=== PATIENT | male | born 1980 | race Caucasian/White ===

== ENCOUNTER 2020-08-16 10:54 | Observation (INO) | payer BC ==
[~2020-08-16] VITALS: Ht 188 cm; Wt 96.6 kg
[2020-08-16] MEDS ORDERED: ONDANSETRON HCL INJ 2MG/ML 2ML 2 MG/ML VIAL IV STA (11:05)
[2020-08-16] MEDS ORDERED: CEFEPIME 1GM/NS 0.9% 50 ML 50 ML IV STA (11:05)
[2020-08-16] MEDS ORDERED: MORPHINE SULFATE INJ 4 MG/ML INJ 1ML IV PRN ×2 (11:15→12:30)
[2020-08-16] MEDS ORDERED: SODIUM CHLORIDE 0.9% 1000ML 1,000 ML IV SCH (11:15)
[2020-08-16 11:19] LABS: BASOPHILS # (AUTO) 0.1 (0.0-0.1); BASOPHILS % 0.8 % (0.0-1.0); EOSINOPHILS # (AUTO) 0.1 (0.0-0.4); EOSINOPHILS % 1.7 % (0.0-6.0); HEMATOCRIT 49.8 % (38.2-49.6); LYMPHOCYTES # (AUTO) 1.4 (1.0-3.2); LYMPHOCYTES % 18.1 % (18.0-39.1); MEAN CORPUSCULAR HGB CONC 34.1 g/dL (31-35); MEAN CORPUSCULAR VOLUME 93.6 fL (81-99); MONOCYTES # (AUTO) 0.5 (0.2-0.8); NEUTROPHILS # (AUTO) 5.7 (2.1-6.9); PLATELET COUNT 211 x10e3/uL (140-360); RED BLOOD COUNT 5.32 x10e6/uL (4.3-5.7)
[2020-08-16] MEDS ORDERED: SODIUM CHLORIDE 0.9% 50ML 50 ML ONE (11:37)
[2020-08-16] MEDS ORDERED: IOPAMIDOL 370 MG/ML 200 ML INFUS..BTL INJ ONE (11:37)
[2020-08-16 11:40] LABS: ALANINE AMINOTRANSFERASE 101 IU/L (0-55); ALBUMIN 4.3 g/dL (3.5-5.0); ALBUMIN/GLOBULIN RATIO 1.1 (0.8-2.0); ALKALINE PHOSPHATASE 76 IU/L (40-150); ANION GAP 16.1 mmol/L (8-16); BLOOD UREA NITROGEN 10 mg/dL (7-26); BUN/CREATININE RATIO 9 (6-25); CALCIUM 9.2 mg/dL (8.4-10.2); CARBON DIOXIDE 28 mmol/L (22-29); CHLORIDE 102 mmol/L (98-107); CREATININE, SERUM 1.08 mg/dL (0.72-1.25); EST GLOMERULAR FILTRATION RATE > 60 ML/MIN (60-); GLUCOSE 119 mg/dL (74-118); POTASSIUM 4.1 mmol/L (3.5-5.1); SODIUM 142 mmol/L (136-145)
[2020-08-16] MEDS ORDERED: VANCOMYCIN 1GM/NS 250 ML 250 ML IV ONE (12:00)
[2020-08-16] MEDS ORDERED: ONDANSETRON HCL INJ 2MG/ML 2ML 2 MG/ML VIAL IV PRN ×2 (12:15→12:30)
[2020-08-16] MEDS ORDERED: MORPHINE SULFATE INJ 2 MG/ML SYR IV PRN (12:15)
[2020-08-16] MEDS ORDERED: POLYETHYLENE GLYCOL 3350 17 GM PACK PO PRN (12:30)
[2020-08-16] MEDS ORDERED: POTASSIUM CHLORIDE 20 MEQ TAB CR PO PRN (12:30)
[2020-08-16] MEDS ORDERED: ACETAMINOPHEN 325 MG TAB PO PRN (12:30)
[2020-08-16] MEDS ORDERED: HYDRALAZINE HCL 20 MG/ML VIAL IV PRN (12:30)
[2020-08-16] MEDS ORDERED: DEXTROSE 50% SYRINGE 50 ML IV PRN (12:30)
[2020-08-16] MEDS ORDERED: HYDROCODONE/APAP 5MG-325MG TAB PO PRN (12:30)
[2020-08-16] MEDS ORDERED: DIPHENHYDRAMINE HCL 25 MG CAP PO PRN (12:30)
[2020-08-16] MEDS ORDERED: DOCUSATE SODIUM 100 MG CAP PO PRN (12:30)
[2020-08-16] MEDS ORDERED: LIDOCAINE HCL 2% LOCAL INJ 5 ML SDV VIAL INJ ONE (12:49)
[2020-08-16] MEDS ORDERED: DEXAMETHASONE SOD PHOS INJ 4 MG/ML VIAL ONE (12:49)
[2020-08-16] MEDS ORDERED: ONDANSETRON HCL INJ 2MG/ML 2ML 2 MG/ML VIAL ONE (12:49)
[2020-08-16] MEDS ORDERED: SEVOFLURANE INHAL SOLN 250 ML PEN BTL ONE (12:49)
[2020-08-16] MEDS ORDERED: PROPOFOL IV EMULSION 10 MG/ML 20 ML VIAL ONE (12:49)
[2020-08-16] MEDS: SODIUM CHLORIDE 0.9% 1000ML 1,000 ML IV SCH (13:41)
[2020-08-16] MEDS: MORPHINE SULFATE INJ 4 MG/ML INJ 1ML IV PRN (16:47)
[2020-08-16] MEDS ORDERED: ENOXAPARIN SOD INJ 40 MG/0.4 ML SYR SC SCH (17:00)
[2020-08-16] MEDS ORDERED: BUPIVACAINE HCL 0.5% INJ 30 ML VIAL INJ ONE (19:06)
[2020-08-16] MEDS ORDERED: LIDOCAINE HCL 2% 30 ML TUBE ONE (19:06)
[2020-08-16] MEDS ORDERED: ACETAMINOPHEN/CODEINE 300MG - 30MG TAB PO PRN (19:45)
[2020-08-16] MEDS ORDERED: FENTANYL CITRATE/PF 100MCG/2 ML INJ ONE (19:59)
[2020-08-16] MEDS: CEFEPIME 1GM/NS 0.9% 50 ML 50 ML IV SCH (20:42)
[2020-08-16 20:45] VITALS: BP 171/117
[2020-08-16] MEDS ORDERED: VANCOMYCIN 1GM/NS 250 ML 250 ML IV SCH (21:00)
[2020-08-16] MEDS ORDERED: MELATONIN 5 MG TABLET PO PRN (21:00)
[2020-08-16 21:48] VITALS: BP 171/117
[2020-08-16 22:13] VITALS: BP 171/117
[2020-08-17] VITALS: BP 159/96
[2020-08-17] MEDS: MORPHINE SULFATE INJ 4 MG/ML INJ 1ML IV PRN (00:24)
[2020-08-17] MEDS: SODIUM CHLORIDE 0.9% 1000ML 1,000 ML IV SCH ×2 (03:26→14:43)
[2020-08-17 04:00] VITALS: BP 159/96
[2020-08-17 05:47] LABS: BASOPHILS % 0.2 % (0.0-1.0); EOSINOPHILS % 0.3 % (0.0-6.0); HEMATOCRIT 44.5 % (38.2-49.6); HEMOGLOBIN 15.6 g/dL (14.0-18.0); LYMPHOCYTES # (AUTO) 0.8 (1.0-3.2); MEAN CORPUSCULAR HEMOGLOBIN 33.1 pg (28-32); MEAN CORPUSCULAR HGB CONC 35.1 g/dL (31-35); MEAN CORPUSCULAR VOLUME 94.3 fL (81-99); MONOCYTES # (AUTO) 0.3 (0.2-0.8); MONOCYTES % 4.8 % (4.4-11.3); NEUTROPHILS # (AUTO) 5.5 (2.1-6.9); NEUTROPHILS % 82.4 % (38.7-80.0); PLATELET COUNT 180 x10e3/uL (140-360); RED BLOOD COUNT 4.72 x10e6/uL (4.3-5.7); RED CELL DISTRIBUTION WIDTH 11.8 % (11.7-14.4)
[2020-08-17 06:13] LABS: ALANINE AMINOTRANSFERASE 186 IU/L (0-55); ALBUMIN 3.6 g/dL (3.5-5.0); ALBUMIN/GLOBULIN RATIO 1.1 (0.8-2.0); ALKALINE PHOSPHATASE 84 IU/L (40-150); ANION GAP 12.1 mmol/L (8-16); BLOOD UREA NITROGEN 11 mg/dL (7-26); BUN/CREATININE RATIO 12 (6-25); CALCIUM 8.5 mg/dL (8.4-10.2); CARBON DIOXIDE 25 mmol/L (22-29); CHLORIDE 104 mmol/L (98-107); CREATININE, SERUM 0.94 mg/dL (0.72-1.25); EST GLOMERULAR FILTRATION RATE > 60 ML/MIN (60-); GLUCOSE 126 mg/dL (74-118); POTASSIUM 4.1 mmol/L (3.5-5.1); SODIUM 137 mmol/L (136-145)
[2020-08-17] MEDS ORDERED: PANTOPRAZOLE SOD 40 MG TABEC PO SCH (07:30)
[2020-08-17 08:15] VITALS: BP 158/88
[2020-08-17 09:00] VITALS: BP 158/88
[2020-08-17] MEDS: CEFEPIME 1GM/NS 0.9% 50 ML 50 ML IV SCH (10:00)
[2020-08-17 12:00] VITALS: BP 157/83
[2020-08-17] MEDS ORDERED: CIPRO500 MG PO (13:51)
[2020-08-17] MEDS ORDERED: DOXYCYCLINE HY100 MG PO (13:51)
== END 2020-08-17 16:14 | disposition home or self-care (01) ==
LOC: ER 11:25 → ERHOLD 12:21 → MED/SURG 20:17
PROVIDERS: ADMIT Internal Medicine; ATTEND Internal Medicine
DX: K61.0 Anal abscess (principal); Z20.822 Contact with and (suspected) exposure to COVID-19; Z90.49 Acquired absence of other specified parts of digestive tract
CPT/HCPCS: 36415 ×2; 46050; 72193; 80053 ×2; 83605; 85025 ×2; 87040; 99284; G0378 ×2; J0360; J0692 ×2; J1650; J2270 ×2; J2405 ×2; J3010; J3370; J7030 ×2; Q9967; S0164; U0002; J1100; J2001

== ENCOUNTER 2021-12-18 09:27 | Emergency (ER) | payer BC ==
[~2021-12-18] VITALS: Ht 188 cm; Wt 96.6 kg
[~2021-12-18 09:27] MED LIST: CIPRO500 MG PO; DOXYCYCLINE HY100 MG PO
[2021-12-18] MEDS ORDERED: SODIUM CHLORIDE 0.9% 1000ML 1,000 ML IV STA (09:33)
[2021-12-18] MEDS ORDERED: DICYCLOMINE HCL 20 MG/2 ML VIAL IM ONE (09:45)
[2021-12-18] MEDS ORDERED: ONDANSETRON HCL INJ 2MG/ML 2ML 2 MG/ML VIAL IV PRN (09:45)
[2021-12-18 09:52] LABS: BASOPHILS % 0.5 % (0.0-1.0); EOSINOPHILS # (AUTO) 0.2 (0.0-0.4); EOSINOPHILS % 2.2 % (0.0-6.0); HEMATOCRIT 49.6 % (38.2-49.6); HEMOGLOBIN 17.2 g/dL (14.0-18.0); LYMPHOCYTES # (AUTO) 1.7 (1.0-3.2); LYMPHOCYTES % 21.4 % (18.0-39.1); MEAN CORPUSCULAR HEMOGLOBIN 33.3 pg (28-32); MEAN CORPUSCULAR HGB CONC 34.7 g/dL (31-35); MEAN CORPUSCULAR VOLUME 95.9 fL (81-99); MONOCYTES # (AUTO) 0.5 (0.2-0.8); MONOCYTES % 5.6 % (4.4-11.3); NEUTROPHILS # (AUTO) 5.7 (2.1-6.9); NEUTROPHILS % 70.1 % (38.7-80.0); PLATELET COUNT 203 x10e3/uL (140-360); RED BLOOD COUNT 5.17 x10e6/uL (4.3-5.7); RED CELL DISTRIBUTION WIDTH 12.1 % (11.7-14.4)
[2021-12-18 09:55] LABS: CLARITY,URINE CLEAR (CLEAR); COLOR,URINE YELLOW (YELLOW); KETONES,URINE NEGATIVE (NEGATIVE); LEUKOCYTE ESTERASE ,URINE TRACE (NEGATIVE); NITRITE,URINE NEGATIVE (NEGATIVE); PROTEIN,URINE DIPSTICK 2+ (NEGATIVE); URINE UROBILINOGEN 0.2 mg/dL (0.2 - 1)
[2021-12-18 10:14] LABS: BACTERIA,URINE FEW /HPF; EPITHELIAL CELLS,URINE FEW /LPF
[2021-12-18 10:15] LABS: ALBUMIN 4.2 g/dL (3.5-5.0); ALBUMIN/GLOBULIN RATIO 1.1 (0.8-2.0); CALCIUM 9.4 mg/dL (8.4-10.2); CREATININE, SERUM 1.09 mg/dL (0.72-1.25)
[2021-12-18] MEDS ORDERED: SODIUM CHLORIDE 0.9% 100 ML ONE (10:55)
[2021-12-18] MEDS ORDERED: IOPAMIDOL 370 MG/ML 100 ML INFUS..BTL INJ ONE (10:55)
[2021-12-18] MEDS ORDERED: DICYCLOMINE HCL20 MG PO (11:24)
[2021-12-18 11:57] VITALS: BP 135/72
== END 2021-12-18 11:45 | disposition home or self-care (01) ==
LOC: ER 09:35
DX: R19.7 Diarrhea, unspecified (principal); R10.9 Unspecified abdominal pain
CPT/HCPCS: 36415; 74177; 80053; 81001; 83690; 84702; 85025; 99284; J0500; J7030; J7050; Q9967; J2405

== ENCOUNTER 2022-11-20 21:53 | Emergency (ER) | payer SELFPAY ==
[~2022-11-20] VITALS: Ht 188 cm; Wt 87.1 kg
[~2022-11-20 21:53] MED LIST changes: +DICYCLOMINE HCL20 MG PO
[2022-11-20] MEDS ORDERED: KETOROLAC TROMETHAMINE 30 MG/ML VIAL IV STA (22:11)
[2022-11-20] MEDS ORDERED: KETOROLAC TROMETHAMINE 30 MG/ML VIAL ONE ×8 (22:19)
[2022-11-20] MEDS ORDERED: KETOROLAC TROME10 MG PO (23:51)
[2022-11-21 00:35] VITALS: BP 176/101
== END 2022-11-21 00:35 | disposition home or self-care (01) ==
LOC: FSED 21:58
DX: N50.811 Right testicular pain (principal); R10.9 Unspecified abdominal pain; I12.0 Hypertensive chronic kidney disease with stage 5 chronic kidney disease or end stage renal disease; N18.6 End stage renal disease; F17.210 Nicotine dependence, cigarettes, uncomplicated
CPT/HCPCS: 74176; 76870; 80048; 80076; 81003; 85025; 99284; J1885

== ENCOUNTER 2024-10-16 21:50 | Emergency (ER) | payer OTHER ==
[~2024-10-16] VITALS: Ht 188 cm; Wt 90.7 kg
[~2024-10-16 21:50] MED LIST changes: +AZITHROMYCIN250 MG PO; +HYDROCODON-ACE1 EAC9 PO; +KETOROLAC TROME10 MG PO; +NORVASC10 MG PO; +ONDANSETRON ODT4 MG PO; +PREDNISONE20 MG PO; +VENTOLIN HFA18 GM INH
[2024-10-16 22:30] LABS: BASOPHILS % 0.5 % (0.0-1.0); EOSINOPHILS # (AUTO) 0.3 (0.0-0.4); EOSINOPHILS % 3.2 % (0.0-6.0); HEMATOCRIT 48.4 % (38.2-49.6); HEMOGLOBIN 17.7 g/dL (14.0-18.0); LYMPHOCYTES # (AUTO) 2.3 (1.0-3.2); LYMPHOCYTES % 29.6 % (18.0-39.1); MEAN CORPUSCULAR HEMOGLOBIN 33.7 pg (28-32); MEAN CORPUSCULAR HGB CONC 36.6 g/dL (31-35); MONOCYTES # (AUTO) 0.6 (0.2-0.8); MONOCYTES % 7.2 % (4.4-11.3); NEUTROPHILS # (AUTO) 4.6 (2.1-6.9); NEUTROPHILS % 59.2 % (38.7-80.0); PLATELET COUNT 199 x10e3/uL (140-360); RED BLOOD COUNT 5.26 x10e6/uL (4.3-5.7); WHITE BLOOD COUNT 7.81 x10e3/uL (4.8-10.8)
[2024-10-16 22:34] LABS: INR 0.92; PROTHROMBIN TIME 12.9 seconds (11.9-14.5)
[2024-10-16 22:42] LABS: ETHANOL 211.5 mg/dL (0.0-10.0)
[2024-10-16 22:45] LABS: ALBUMIN 4.5 g/dL (3.5-5.0); ALBUMIN/GLOBULIN RATIO 1.3 (0.8-2.0); ANION GAP 18.3 mmol/L (8-16); BILIRUBIN,TOTAL 0.8 mg/dL (0.2-1.2); CALCIUM 9.2 mg/dL (8.4-10.2); CREATININE, SERUM 1.02 mg/dL (0.72-1.25); TOTAL PROTEIN 7.9 g/dL (6.5-8.1)
[2024-10-16 22:54] LABS: POTASSIUM 3.3 mmol/L (3.5-5.1)
[2024-10-16] MEDS: KETOROLAC TROMETHAMINE 30 MG/ML VIAL IV STA (23:21)
[2024-10-16 23:45] LABS: CORONAVIRUS COVID-19 AG NEGATIVE (NEGATIVE); INFLUENZA A AG NEGATIVE (NEGATIVE); INFLUENZA B AG NEGATIVE (NEGATIVE)
[2024-10-17] MEDS ORDERED: MEDROL4 M2 PO (01:06)
[2024-10-17] MEDS ORDERED: AZITHROMYCIN250 MG PO (01:06)
[2024-10-17 01:21] VITALS: PULSE 96; RESP 16; TEMP 98; O2SAT 96
== END 2024-10-17 01:25 | disposition home or self-care (01) ==
LOC: ER 22:28
DX: R06.02 Shortness of breath (principal); R07.89 Other chest pain; J40 Bronchitis, not specified as acute or chronic; F10.129 Alcohol abuse with intoxication, unspecified; I10 Essential (primary) hypertension; K21.9 Gastro-esophageal reflux disease without esophagitis; Z11.52 Encounter for screening for COVID-19; R94.31 Abnormal electrocardiogram [ECG] [EKG]; F17.210 Nicotine dependence, cigarettes, uncomplicated
CPT/HCPCS: 36415; 71045; 80053; 80320; 83690; 84484; 85025; 85610; 85730; 87428; 93005; 99284; J1885

== ENCOUNTER 2025-04-27 20:32 | Observation (INO) | payer OTHER ==
[~2025-04-27] VITALS: Ht 188 cm; Wt 90.7 kg
[~2025-04-27 20:32] MED LIST changes: +MEDROL4 M2 PO
[2025-04-27 20:49] VITALS: TEMP 97.8
[2025-04-27] MEDS ORDERED: SODIUM CHLORIDE FLUSH 10 ML SYR IV PRN (21:00)
[2025-04-27 21:28] LABS: BASOPHILS % 0.7 % (0.0-1.0); EOSINOPHILS % 3.3 % (0.0-6.0); LYMPHOCYTES % 34.1 % (18.0-39.1); MONOCYTES % 8.9 % (4.4-11.3); NEUTROPHILS % 52.9 % (38.7-80.0); RED CELL DISTRIBUTION WIDTH 11.9 % (11.7-14.4)
[2025-04-27 21:46] LABS: EST GLOMERULAR FILTRATION RATE 111.0 ML/MIN (>=60)
[2025-04-28] MEDS ORDERED: Morphine 4mg INJECTION 4 MG/ML INJ IV PRN (00:45)
[2025-04-28] MEDS ORDERED: ONDANSETRON HCL INJ 2MG/ML 2ML 2 MG/ML VIAL IV PRN (00:45)
[2025-04-28] MEDS: SODIUM CHLORIDE 0.9% 1000ML 1,000 ML IV SCH (02:02)
[2025-04-28 02:04] VITALS: PULSE 69; RESP 16
[2025-04-28 03:12] VITALS: PULSE 70; RESP 16; O2SAT 98
[2025-04-28 07:01] VITALS: PULSE 77; RESP 20; O2SAT 96
[2025-04-28 22:07] VITALS: PULSE 77; RESP 20; O2SAT 97
[2025-04-29 07:32] VITALS: PULSE 78; RESP 20; O2SAT 96
== END 2025-04-28 03:10 | disposition left against medical advice (07) ==
LOC: ER 04-28 00:02 → ERHOLD 04-28 00:35 → UNDOADMOB 04-28 00:35 → IMCU 04-28 03:00 → ER 04-28 13:10
PROVIDERS: ADMIT Emergency Medicine; ATTEND Emergency Medicine
DX: R07.89 Other chest pain (principal); K85.90 Acute pancreatitis without necrosis or infection, unspecified; F10.129 Alcohol abuse with intoxication, unspecified; Z53.29 Procedure and treatment not carried out because of patient's decision for other reasons
CPT/HCPCS: 36415 ×2; 71045; 80053; 80320 ×2; 82550; 83690; 84484 ×2; 85025; 93005; 94760; 94799; 99284; G0378; J2470; J7030